=== PATIENT | female | born 1975 | race Caucasian/White ===

== ENCOUNTER → 2021-01-07 12:17 | Outpatient (CLI) | payer OTHER, MEDICAID, SELFPAY ==
--- NOTE | 2021-01-07 | DI.MRI.S_ITS ---
PROCEDURE: MR LUMBAR SPINE WO CON INDICATIONS: Radiculopathy, lumbar region TECHNIQUE: Noncontrast sagittal T1 spin echo and T2 fast echo, sagittal STIR, axial T1 and T2 fast spin echo through the lumbar spine. In cases with scoliosis, additional coronal T2 fast spin echo may be performed. COMPARISON: None. FINDINGS: Image quality: Excellent. Alignment and Curvature: There is normal bony alignment. Bone Marrow: Marrow is of normal overall signal. No acute vertebral body compression fractures. Spinal Cord: Conus medullaris terminates at the L1 level. Visualized cord demonstrates normal signal and size. Paraspinous Soft Tissues: No paravertebral masses. T12-L1: Mild degenerative disc disease with mild disc height reduction and desiccation and a slight posterior disc bulge which does not produce significant spinal or foraminal stenosis. L1-L2: Additionally, a mild degree of degenerative disc disease is seen at this level similar to the level above, with mild disc height reduction and desiccation and a slight posterior disc bulge that does not produce spinal or foraminal stenosis. L2-L3: Moderate degenerative disc disease, with a greater degree of disc height reduction and desiccation and a posterior broad-based transverse disc bulge at this level. There is also facet osteoarthritis that is [id number] in severity, produces mild hyperostosis at the neural foramen, and also there is a mild degree of ligamentum flavum hypertrophy. This results in slight crowding of nerve roots within the thecal sac, and mild left greater than right foraminal stenosis, but no definite nerve root impingement at time of scanning. L3-L4: Normal appearance except slight facet osteoarthritis. L4-L5: Normal appearance except the slight facet osteoarthritis. L5-S1: Normal appearance except slight facet osteoarthritis. IMPRESSION: A disc herniation is not present. A definite site of nerve root impingement is not seen. The most prominent degree of degenerative disc disease and facet osteoarthritis is present at L2-L3 where there is a small degree of crowding of nerve roots within the thecal sac and left greater than right mild foraminal stenosis from chronic degenerative disc disease and facet osteoarthritis. Overall, therefore, currently minimal spinal and foraminal stenosis is found. Dictated by: Juanito Contreras M.D. on 01/09/2021 at 17:09 Approved by: Juanito Contreras M.D. on 01/09/2021 at 17:15
== END ==
PROVIDERS: PCP Nurse Practitioner Family; Referring Provider Nurse Practitioner Family; Visit Provider Nurse Practitioner Family
DX: M54.16 Radiculopathy, lumbar region (principal)
CPT/HCPCS: 72148

== ENCOUNTER 2022-11-06 15:33 | Outpatient (CLI) | payer OTHER, MEDICAID, SELFPAY ==
[2022-11-06] VITALS (8 sets, daily range): BP systolic 141–184; BP diastolic 72–98; PULSE 51–65; RESP 12–20; TEMP 36.2; O2SAT 95–100
--- NOTE | 2022-11-06 15:35 | DI.RAD.S_ITS ---
PROCEDURE: PAIN L/S TRANSFORAMINAL INJECT INDICATIONS: SPONDYLOSIS COMPARISON: [facility], RG, XR L-SPINE 2-3V, 02/01/2022, 18:54. FINDINGS: Fluoroscopic spot filming was performed to verify placement of spinal needles at the left L2-L3 neural foramen level(s), as labeled on the films. Appropriate location(s) of the needle tip(s) was confirmed by injection of iodinated contrast. IMPRESSION: Access needle tip at the left L2-L3 neural foramen for transforaminal epidural steroid injection. Dictated by: Joselin Alexander MD, PhD on 11/06/2022 at 16:39 Approved by: Joselin Alexander MD, PhD on 11/06/2022 at 16:40
[2022-11-06] MEDS: MIDAZOLAM 2 MG/2 ML VIAL IV (16:03)
[2022-11-06] MEDS: IOPAMIDOL 15 ML VIAL 3 ML INJ (16:08)
[2022-11-06] MEDS: BETAMETHASONE 30 MG/5 ML MDV 6 MG INJ (16:09)
[2022-11-06] MEDS: DEXAMETHASONE 10 MG/ML VIAL 20 MG INJ (16:09)
[2022-11-06] MEDS: BUPIVACAINE 0.25% (PF) VIAL 2 ML INJ (16:09)
--- NOTE | 2022-11-06 16:18 | PM.PROC.IR.1 ---
Date/Time/Diagnoses Date of procedure: 11/06/22 Time of procedure: 16:18 Pre-procedure diagnosis: 1. FORAMINAL STENOSIS WITH LE SYMPTOMS Post-procedure diagnosis: same Procedure Notes Procedure: 1. FLUOROSCOPICALLY GUIDED CONTRAST CONTROLLED TRANSFORAMINAL EPIDURAL STEROID INJECTION - LEFT L2/3 TFESI Indications: Helen is referred by JAYESH Levin for treatment of Foraminal Stenosis with left LE Symptoms Physician: Daquan Castillo Total Fluoroscopy time (seconds): 10 Total sedation minutes: 9 Complications: none Procedure in detail & Post-procedure care: FINDINGS Foraminal Nerve Root Compression secondary to disc disease and facet hypertrophy DESCRIPTION OF PROCEDURE Following review of allergy and review of potential side effects and complications, including, but not necessarily limited to, infection, allergic reaction, local tissue breakdown, stroke, temporary or permanent nerve injury, paralysis, and possible , the patient indicated that the patient understood and agreed to proceed. An informed consent document was signed by the patient, witnessed by a nurse, and placed in the patient's chart. Additionally, other treatment options including medications, modalities, and physical therapy were reviewed with the patient. After review of previous anaesthesic history and IV conscious sedation the patient was deemed safe to proceed with today?s procedure with IV conscious sedation as ASA class II designation. Safety time-out was performed to confirm patient ID, procedure to be performed and site of procedure. IV sedation was accomplished with a combination of 2mg of Versed was administered by the RN after DO order, titrated to patient comfort during the course of the procedure while the patient remained responsive to all verbal commands In the prone position following sterile prep and drape of the lumbar region, the left L3/4 posterior neuroforamen was identified fluoroscopically. The skin was anesthetized via a 25-gauge 1.5-inch needle with 1% lidocaine solution. At this point, a 25-gauge 3.5-inch spinal needle was atraumatically introduced and advanced under fluoroscopic guidance through the posterior left L3/4 neuroforamen to approximately the anterior aspect of the canal. Depth was confirmed on lateral view. Following negative aspiration, injection of approximately 1.5 cc of Isovue 200 under live fluoroscopy in the AP view confirmed excellent flow along the nerve root, into the epidural space without vascular or intrathecal uptake observed Radiological data, including multiple fluoroscopic views of the lumbosacral spine, reveal a spinal needle at the left L3/4 posterior neuroforamen. Subsequent views show flow of contrast material flowing superiorly and inferiorly along the nerve root confirming epidural flow. Subsequently, a test dose of 1.5cc of 1% lidocaine solution was administered and patient was observed for two minutes for signs or symptoms of complications, including abdominal pain, shortness of breath, bilateral upper or lower extremity weakness, nausea and vomiting, prior to steroid injection. At this point, a total of 3cc or 20mg of dexamethasone and 6mg betamethasone was injected without incident. The patient tolerated the procedure well without signs or symptoms of complications prior to transfer to the recovery area continued monitoring without incident. The patient was then transferred to the recovery area where they were observed for an appropriate time after the injection. The patient reported a VAS score of 7 prior to the procedure and a post-procedure VAS of 0. POST OP INSTRUCTIONS The patient was provided a Pain Log to continue to record their response to the target-specific procedure prior to follow-up visit with their referring physician. Additionally, specific post-injection care instructions and a contact number to our office were provided if concerns arise regarding possible complications associated with the procedure are suspected.
== END 2022-11-06 16:34 | disposition home or self-care (01) ==
LOC: RAD 15:34
PROVIDERS: PCP Physician Assistant; Referring Provider Physical Medicine & Rehabilitation; Visit Provider Physical Medicine & Rehabilitation
DX: M48.061 Spinal stenosis, lumbar region without neurogenic claudication (principal); M51.16 Intervertebral disc disorders with radiculopathy, lumbar region
CPT/HCPCS: 64483; J0702; J1100; J2250; J3490

== ENCOUNTER → 2023-01-23 16:34 | Outpatient (CLI) | payer OTHER, MEDICAID, SELFPAY ==
--- NOTE | 2023-01-23 16:37 | DI.RAD.S_ITS ---
PROCEDURE: XR HIP W PEL IF DONE GERMAIN MIN 4V INDICATIONS: Left hip DJD TECHNIQUE: AP pelvis with lateral view(s) of the bilateral hip(s). COMPARISON: None. FINDINGS: Bones: Normal mineralization. No fracture or dislocation. Mild, asymmetric femoroacetabular joint space loss and sclerosis in the left hip with moderate superior acetabular marginal spurring. Similar, mild changes in the right hip. Femoral heads maintain normal shape. Osseous pelvis appears intact. Soft tissues: The visualized bowel gas pattern is normal. No suspicious soft tissue calcifications. IMPRESSION: 1. Mild to moderate bilateral osteoarthritic change in the hips, left worse than right. Dictated by: Tiffany Rolon M.D. on 01/23/2023 at 17:38 Approved by: Tiffany Rolon M.D. on 01/23/2023 at 17:39
== END ==
PROVIDERS: PCP Physician Assistant; Referring Provider Physical Medicine & Rehabilitation; Visit Provider Physical Medicine & Rehabilitation
DX: M16.12 Unilateral primary osteoarthritis, left hip (principal); M51.26 Other intervertebral disc displacement, lumbar region; E66.01 Morbid (severe) obesity due to excess calories; Z68.42 Body mass index [BMI] 45.0-49.9, adult
CPT/HCPCS: 73522; 99214

== ENCOUNTER 2023-05-16 13:25 | Outpatient (CLI) | payer OTHER, MEDICAID, SELFPAY ==
[2023-05-16] VITALS (8 sets, daily range): BP systolic 131–146; BP diastolic 73–101; PULSE 5–70; RESP 16–21; TEMP 36.7; O2SAT 99–100
--- NOTE | 2023-05-16 13:27 | DI.RAD.S_ITS ---
PROCEDURE: PAIN L INTERLAMINAR/CAUDAL INJ INDICATIONS: SPONDYLOSIS COMPARISON: None. FINDINGS: Fluoroscopic spot filming was performed to verify placement of spinal needles at the L2-3 interlaminar space level(s), as labeled on the films. Appropriate location(s) of the needle tip(s) was confirmed by injection of iodinated contrast. IMPRESSION: Access needle in the L2-L3 interlaminar space for translaminar epidural steroid injection. Dictated by: Joselin Alexander MD, PhD on 05/16/2023 at 15:16 Approved by: Joselin Alexander MD, PhD on 05/16/2023 at 15:17
--- NOTE | 2023-05-16 13:52 | P.PCN_ITS ---
Date/Time/Diagnoses Date of procedure: 05/16/23 Time of procedure: 13:52 Pre-procedure diagnosis: 1. HNP WITH RADICULAR FEATURES, 2. MULTILEVEL CENTRAL STENOSIS, Post-procedure diagnosis: same Procedure Notes Procedure: 1. FLUOROSCOPICALLY GUIDED CONTRAST CONTROLLED INTERLAMINAR EPIDURAL STEROID INJECTION - L2/3 Indications: Helen is referred by Dr. Levin for treatment of Bilateral Foraminal Stenosis L>R LE symptoms. Physician: Daquan Castillo Total Fluoroscopy time (seconds): 8 Total sedation minutes: 10 Complications: none Procedure in detail & Post-procedure care: FINDINGS Multilevel Central Spinal Stenosis with Nerve Root Compression DESCRIPTION OF PROCEDURE Fluoroscopically guided, contrast-controlled L2/3 translaminar epidural steroid injection. Following review of allergy and review of potential side effects and complications, including, but not necessarily limited to, infection, allergic reaction, local tissue breakdown, temporary as well as permanent nerve injury, paralysis, stroke and possible , the patient indicated that the patient understood and agreed to proceed. An informed consent document was signed by the patient, witnessed by a nurse, and placed in the patient's chart. Additionally, other treatment options including modalities, medications, and physical therapy were reviewed with the patient. After review of previous anaesthesic history and IV conscious sedation the patient was deemed safe to proceed with today?s procedure with IV conscious sedation as ASA class II designation. Safety time-out was performed to confirm patient ID, procedure to be performed and site of procedure. IV sedation was accomplished with a combination of 2mg Versed administered by the RN after DO order, titrated to patient comfort during the course of the procedure while the patient remained responsive to all verbal commands. In the prone position, following sterile prep and drape of the lumbar region,the L2/3 translaminar space was identified fluoroscopically. The skin was anesthetized via a 25-gauge, 1.5-inch needle with 1% lidocaine solution. At this point, a 22-gauge short bevel spinal needle was atraumatically introduced and advanced under fluoroscopic guidance into the region of the L2/3 translaminar space. Depth was confirmed on lateral view. Radiological data, including multiple fluoroscopic views of the lumbar spine, re veal a spinal needle at the L2/3 translaminar space. Lateral views then show placement of the needle in the epidural space. Subsequent views show contrast material flowing superiorly and inferiorly in the epidural space. No vascular or intrathecal uptake is observed. At this point, using loss of resistance technique with saline and air, the epidural space was entered. This was confirmed following negative aspiration with injection of approximately 1.5 cc of Isovue 200, showing excellent epidural flow without vascular or intrathecal uptake. At this point, 1 cc of 1% lidocaine solution combined with 2cc or 10mg of dexamethasone and 6mg of betamethasone was injected without incident. The patient tolerated the procedure well without signs or symptoms of complications prior to transfer to the recovery area continued monitoring without incident. The patient was then transferred to the recovery area where they were observed for an appropriate period of time after the injection. The patient reported a VAS score of 6 prior to the procedure and a post-procedure VAS of 0. POST OP INSTRUCTIONS The patient was provided a Pain Log to continue to record their response to the target-specific procedure prior to follow-up visit with their referring physician. Additionally, specific post-injection care instructions and a contact number to our office were provided if concerns arise regarding possible complications associated with the procedure are suspected.
[2023-05-16] MEDS: MIDAZOLAM 2 MG/2 ML VIAL IV (14:52)
[2023-05-16] MEDS: IOPAMIDOL 15 ML VIAL 3 ML INJ (14:54)
[2023-05-16] MEDS: BETAMETHASONE 30 MG/5 ML MDV 6 MG INJ (14:55)
[2023-05-16] MEDS: DEXAMETHASONE 10 MG/ML VIAL INJ (14:55)
[2023-05-16] MEDS: BUPIVACAINE 0.25% (PF) VIAL 2 ML INJ (14:56)
== END 2023-05-16 15:27 | disposition home or self-care (01) ==
PROVIDERS: PCP Physician Assistant; Referring Provider Physical Medicine & Rehabilitation; Visit Provider Physical Medicine & Rehabilitation
DX: M51.16 Intervertebral disc disorders with radiculopathy, lumbar region (principal); M48.061 Spinal stenosis, lumbar region without neurogenic claudication
CPT/HCPCS: 62323; 99152; J0702; J1100; J2250; J3490